=== PATIENT | male | born 1945 | race Caucasian/White ===

== ENCOUNTER → 2018-04-24 11:31 | Outpatient (REF) | payer MEDICARE, SELFPAY ==
[2018-04-24 21:51] LABS: Anion Gap 12.1 mmol/L (3-11); BUN 28 mg/dL (7-18); CO2 26.9 mmol/L (21.0-32.0); CREATININE 1.18 mg/dL (0.70-1.30); Calcium 8.9 mg/dL (8.5-10.1); Chloride 104 mmol/L (98-107); Glucose 143 mg/dL (70-100); Potassium 3.6 mmol/L (3.5-5.1); Sodium 143 mmol/L (136-145)
== END ==
LOC: NCHCN 11:31
PROVIDERS: PCP Nurse Practitioner Adult Health; Visit Provider Registered Nurse
DX: I10 Essential (primary) hypertension (principal)
CPT/HCPCS: 80048

== ENCOUNTER → 2018-06-13 09:16 | Outpatient (BNVA) | payer MEDICARE, SELFPAY | PROVIDERS: Visit Provider Surgery | DX: K92.1 Melena (principal) | CPT/HCPCS: 99203 ==

== ENCOUNTER 2018-06-29 08:03 | Day surgery (SDC) | payer MEDICARE, SELFPAY ==
[2018-06-29 08:41] VITALS: BP 155/102; PULSE 67; RESP 16; TEMP 36.6; O2SAT 96
[2018-06-29] MEDS: Lactated Ringers 1,000 ML 30 ML IV (08:41)
--- NOTE | 2018-06-29 09:11 | W.COLOREPORT ---
Date of service: 06/29/18 Time of Service: 10:55 Colonoscopy Report Date of procedure: 06/29/18 Pre-op diagnosis general: Heme positive stools Post-op diagnosis procedure note: other (Rectal polyp) Procedure: Colonoscopy to the cecum with biopsy by cold snare Surgeon: Oc Mitchell Anesthesia proc note operative: MAC (Monroe Burnham CRNA; ASA 3, Mallampati class II) Estimated blood loss (mL): 1 Pathology: other (Rectal polyp) Complications: None Disposition: same day Indications: This is a 72-year-old gentleman referred for heme positive stools. He had a colonoscopy over 20 years ago which was unremarkable. He denies seeing any blood in his stools, and has been asymptomatic otherwise in regard to his bowels. It was recommended he have a colonoscopy. The procedure was reviewed with him, and the risks discussed. All his questions were answered to his satisfaction. Consent was obtained to proceed with colonoscopy. Prep: Miralax/Dulcolax (Colon prep adequate) Findings: In examining the colon from cecum to anus, a rectal polyp approximately 1 cm in greatest diameter was identified in the rectum, and removed by cold biopsy forceps no other abnormalities are noted of the colon or rectum. Procedure Description: The patient was seen in the day surgery waiting area. His identification was confirmed, and procedure check. He was then brought to the procedure room. Monitoring for telemetry, blood pressure, oxygen saturation, and end tidal CO2 monitoring were applied. An appropriate time out was performed to confirm, identification, allergies, medication, procedure, was performed. Sedation was titrated for affect by the ROBOTIC MAINTENANCE TECHNICIAN; Once adequate sedation was achieved, I performed a inspection of the external perineum, and a digitial rectal examination. No significant external abnormalities were noted. On digital rectal examination, there was no blood, no masses, good rectal tone, and a normal prostate. I advanced the colonoscope from the anus to the cecum under direct visualization. The cecum was identified by the ileal-cecal valve, and the appendiceal orifice. The scope was then withdrawn in circumferential manner from the cecum to the rectum. No abnormalites were noted in the colon. The scope was then withdrawn into the rectum, and retroflexed. A single polyp was identified in the rectum which is approximately 1 cm in greatest diameter. This was subsequently removed by cold snare biopsy, and no other abnormalities were noted of the rectum or anorectal junction. The scope was then withdrawn, terminating the procedure. There were no complications during the procedure, and the patient tolerated the procedure well. He was returned to the day surgery recovery area in good condition. Plan: We will await pathology before making further recommended.
--- NOTE | 2018-06-29 10:45 | BOWEL_PTH ---
PATIENT: Tae Carrizales LOC: [facility] U#:[id number] AGE/SX: 72/M ROOM: RE06/29/[address]: Oc Mitchell DO : 1945 BED: DIS: 06/29/2018 SPEC #: [id number] RECD: 06/29/18 12:49 STATUS: BOUBACAR REQ #: [id number] MEL: 06/29/18 10:[address]: Oc Mitchell DEPT: Surgical Specimen RECD BY: Maisha Brown ENTERED: 06/29/18 12:50 SP TYPE: Bowel OTHR DR: Reyna Kruger Tissues: 1 - BIOPSY BOWEL Procedures: GROSS AND MICRO LEVEL 4 Comments: [id number]
--- NOTE | 2018-06-29 11:03 | W.PM.DSUDISC ---
Discharge Plan Disposition Patient Disposition: HOME Condition: Good Discharge Details Reason For Visit: Heme positive stools Attending Provider: Oc Mitchell Primary Care Provider: DAVE DE LA ROSA Home Meds and New Rx's Prescriptions: Continue bisacodyl [Dulcolax (bisacodyl)] 5 mg tablet,delayed release (DR/EC) 10 mg PO BID Qty: 4 RF: 0 polyethylene glycol 3350 [Miralax] 17 gram/dose powder 255 gm PO ONCE Qty: 255 RF: 0 aspirin [Aspir-81] 81 MG tablet,delayed release (DR/EC) 81 mg PO DAILY RF: 0 lisinopril 40 MG tablet 40 mg PO DAILY RF: 0 chlorthalidone 25 mg Tablet 25 mg PO DAILY RF: 0 labetalol 100 mg Tablet 100 mg PO DAILY RF: 0 omega-3 fatty acids 1,000 mg Capsule 1,000 mg PO DAILY RF: 0 nitroglycerin [Nitrostat] 0.4 mg Tablet, Sublingual 0.4 mg SUBLINGUAL DIRECTED RF: 0 rosuvastatin [Crestor] 40 mg Tablet 40 mg PO DAILY RF: 0 Discharge Instructions Instructions: Colonoscopy (DC) Activity:: Activity as Tolerated Diet:: As Tolerated Discharge Orders Discharge Orders: Discharge Order (Routine); Ordered 06/29/18 Ordered By: Oc Mitchell DS: Diagnosis Discharge Diagnosis (1) Heme positive stool: Status: Acute Asessment and Plan: Colonoscopy planned: Colonoscopy Report Date of procedure: 06/29/18 Pre-op diagnosis general: Heme positive stools Post-op diagnosis procedure note: other (Rectal polyp) Procedure: Colonoscopy to the cecum with biopsy by cold snare Surgeon: Oc Mitchell Anesthesia proc note operative: MAC (Monroe Burnham, LIS[place]TE; ASA 3, Mallampati class II) Estimated blood loss (mL): 1 Pathology: other (Rectal polyp) Complications: None Disposition: same day Indications: This is a 72-year-old gentleman referred for heme positive stools. He had a colonoscopy over 20 years ago which was unremarkable. He denies seeing any blood in his stools, and has been asymptomatic otherwise in regard to his bowels. It was recommended he have a colonoscopy. The procedure was reviewed with him, and the risks discussed. All his questions were answered to his satisfaction. Consent was obtained to proceed with colonoscopy. Prep: Miralax/Dulcolax (Colon prep adequate) Findings: In examining the colon from cecum to anus, a rectal polyp approximately 1 cm in greatest diameter was identified in the rectum, and removed by cold biopsy forceps no other abnormalities are noted of the colon or rectum. Procedure Description: The patient was seen in the day surgery waiting area. His identification was confirmed, and procedure check. He was then brought to the procedure room. Monitoring for telemetry, blood pressure, oxygen saturation, and end tidal CO2 monitoring were applied. An appropriate time out was performed to confirm, identification, allergies, medication, procedure, was performed. Sedation was titrated for affect by the CUTTER BRAKE LINING; Once adequate sedation was achieved, I performed a inspection of the external perineum, and a digitial rectal examination. No significant external abnormalities were noted. On digital rectal examination, there was no blood, no masses, good rectal tone, and a normal prostate. I advanced the colonoscope from the anus to the cecum under direct visualization. The cecum was identified by the ileal-cecal valve, and the appendiceal orifice. The scope was then withdrawn in circumferential manner from the cecum to the rectum. No abnormalites were noted in the colon. The scope was then withdrawn into the rectum, and retroflexed. A single polyp was identified in the rectum which is approximately 1 cm in greatest diameter. This was subsequently removed by cold snare biopsy, and no other abnormalities were noted of the rectum or anorectal junction. The scope was then withdrawn, terminating the procedure. There were no complications during the procedure, and the patient tolerated the procedure well. He was returned to the day surgery recovery area in good condition. Plan: We will await pathology before making further recommended.
[2018-06-29 11:40] VITALS: BP 145/84; PULSE 57; RESP 16; TEMP 35.8; O2SAT 98
== END 2018-06-29 12:10 | disposition home or self-care (01) ==
PROVIDERS: PCP Registered Nurse; Visit Provider Surgery
PROC: 0DJD8ZZ Inspection of Lower Intestinal Tract, Via Natural or Artificial Opening Endoscopic (ICD-10-PCS; CPT 45378; principal; 2018-06-29 10:15)
DX: R19.5 Other fecal abnormalities (principal); D12.8 Benign neoplasm of rectum; I10 Essential (primary) hypertension
CPT/HCPCS: 45385; 88305; J2250; J3010

== ENCOUNTER 2018-09-06 00:57 | Outpatient (CLI) | payer MEDICARE, SELFPAY ==
[2018-09-06 13:37] LABS: BUN 33 mg/dL (7-18); CREATININE 1.07 mg/dL (0.70-1.30)
[2018-09-06] MEDS: Gadoterate meglumine 20 ML VIAL IVP (14:14)
--- NOTE | 2018-09-06 14:33 | DI.MRI_ITS ---
SYMPTOM/DIAGNOSIS: IMPAIRMENT OF AUDIO LEFT H93.292, I 91.93, HI.18X2 BRAIN MRI/IAC MRI: The study was carried out without and subsequently with contrast enhancement. There are mild involutional changes involving the brain of small scattered areas of increased signal in the frontoparietal white matter are demonstrated and would be consistent with small vessel disease. There is no evidence of a hemorrhage or mass. There is nothing to suggest regions of restricted diffusion. Note is made of a small region of T-2 hyperintensity in the left timi. This region is seen to measure up to 6 mm in diameter and appears to exhibit enhancement on the contrast run. The ventricles are normal. There is no skull pathology. The soft tissues are unremarkable. Note is made of lobulated mucosal thickening in the paranasal sinuses particularly the ethmoid and frontal sinuses with enhancement. No air fluid levels are demonstrated to suggest acute disease. The mastoid is intact with no evidence of a mastoid effusion. The internal and external auditory canals are of normal configuration. There is no evidence of a mass or abnormal enhancement. Also the middle ear structures appear intact. The orbits are normal. SUMMARY: A small abnormality in the left timi with enhancement, nonspecific, with a broad differential to include infection, inflammatory disease or vascular abnormality and malignancy. Short interval follow up by MRI is recommended regarding this finding. Inflammatory disease is noted involving the ethmoid and frontal sinuses where there may also be small polyps. There is no evidence of acute sinus disease.
--- NOTE | 2018-09-06 16:00 | DI.VRAD_ITS ---
EXAM: MR Head Without and With Contrast EXAM DATE/TIME: 09/06/2018 2:31 PM CLINICAL HISTORY: 72 years old, male; Pain; Other: Iac's; Patient HX: Im pairment of audio left. TECHNIQUE: MR of the head without and with intravenous contrast. CONTRAST: 20 ml of DOTAREM administered intravenously. COMPARISON: No relevant prior studies available. FINDINGS: Brain: Age-related involutional changes of the brain. Scattered T2/flair white matter hyperintensities are present and show no significant enhancement. These are most compatible with chronic microangiopathy. No hemorrhage or mass. No restricted diffusion. Brainstem: There is a small focus of T2 hyperintensity in the left timi. This is seen to measure up to 6 mm. This displays enhancement postcontrast. Ventricles: Normal. No ventriculomegaly. Bones/joints: Unremarkable. Soft tissues: Normal. Sinuses: There is lobulated mucosal thickening in the paranasal sinuses, particularly the ethmoid and frontal sinuses with enhancement. No air-fluid levels. Mastoid air cells: Normal as visualized. No mastoid effusion. Auditory system: Internal and external auditory canals display normal configuration with no evidence of masses or abnormal enhancement. Normal MRI appearance of middle ear structures. Orbits: Unremarkable. IMPRESSION: 1. Small abnormality of the left timi with enhancement. Findings are nonspecific with a broad differential to include infection, inflammation, or vascular abnormality and malignancy. Short interval followup MRI is recommended. 2. Sinus inflammatory disease particularly involving the ethmoid and frontal sinuses with a lobulated appearance which may be from polyposis. Dictated and Authenticated by: Luis A Castro MD. Ordering:ARIANA Dwyer MD
== END 2018-09-06 01:17 ==
PROVIDERS: PCP Registered Nurse; Visit Provider Otolaryngology Otolaryngology/Facial Plastic Surgery
DX: H93.292 Other abnormal auditory perceptions, left ear (principal); H91.93 Unspecified hearing loss, bilateral; R94.02 Abnormal brain scan; Z13.89 Encounter for screening for other disorder; Z01.818 Encounter for other preprocedural examination
CPT/HCPCS: 36415; 70553; 84520; 82565

== ENCOUNTER 2018-10-05 00:28 | Outpatient (CLI) | payer OTHER, SELFPAY ==
[2018-10-05] MEDS: Gadoterate meglumine 20 ML VIAL IVP (08:40)
--- NOTE | 2018-10-05 08:58 | DI.MRI_ITS ---
SYMPTOMS/DIAGNOSIS: ASYMMETRICAL HEARING LOSS OF LEFT EAR, ABNORMAL FINDING ON MRI OF THE BRAIN, H91.8X2, R90.89 MRI OF THE BRAIN AND IACS: Pre and post contrast examination was performed. Comparison is 09/06/18. There is again seen a focus in the left timi, which follows CSF on all sequences. It does not enhance following contrast administration. There is cerebral atrophy consistent with the patient's age. There are areas of T2 hyperintensity in the white matter on the T2 and FLAIR images most consistent with small vessel ischemic disease. There is no acute midline shift or mass effect. The diffusion weighted images show no evidence of an acute infarct. No intracranial hemorrhage is present. Following contrast administration, no enhancing masses are appreciated. The internal auditory canals and cerebellopontine angles are unremarkable. No mass or abnormal enhancement is seen. There is a normal flow void present in the [place]. There is mucosal thickening in the maxillary sinuses and ethmoid air cells bilaterally. There is soft tissue seen in the nasal passageways bilaterally. These may represent nasal polyps. IMPRESSION: 1. Stable abnormality in the left timi as described above. The finding is nonspecific, but this may represent an old lacune. It follows CSF on all pulse sequences and shows no enhancement. Neoplasm is considered less likely. 2. Findings of chronic sinusitis. Soft tissue in the nasal passageway, which may represent nasal polyps. 3. Age-related cerebral atrophy and small vessel ischemic disease. 4. No evidence of an acute infarct or intracranial hemorrhage.
== END 2018-10-05 00:48 ==
PROVIDERS: PCP Registered Nurse; Visit Provider Physician Assistant
DX: H91.8X2 Other specified hearing loss, left ear (principal); R90.89 Other abnormal findings on diagnostic imaging of central nervous system; G31.1 Senile degeneration of brain, not elsewhere classified; J32.9 Chronic sinusitis, unspecified; J33.9 Nasal polyp, unspecified
CPT/HCPCS: 70553

== ENCOUNTER → 2019-01-10 09:40 | Outpatient (BNVA) | payer OTHER, SELFPAY | PROVIDERS: PCP Registered Nurse; Referring Provider Physician Assistant; Visit Provider Psychiatry & Neurology Neurology | DX: I63.89 Other cerebral infarction (principal); Z79.82 Long term (current) use of aspirin; I10 Essential (primary) hypertension; E78.5 Hyperlipidemia, unspecified | CPT/HCPCS: 99205; 99215 ==

== ENCOUNTER 2019-01-23 08:58 | Outpatient (REF) | payer OTHER, SELFPAY ==
[2019-01-23 22:36] LABS: Anion Gap 10.7 mmol/L (3-11); BUN 43 mg/dL (7-18); CO2 25.3 mmol/L (21.0-32.0); CREATININE 1.23 mg/dL (0.70-1.30); Calcium 9.4 mg/dL (8.5-10.1); Chloride 103 mmol/L (98-107); Estimated GFR 57.68 (mL/min/1.73m2); Glucose 125 mg/dL (70-100); Sodium 139 mmol/L (136-145)
== END 2019-01-23 09:18 ==
LOC: NCHCN 08:58
PROVIDERS: PCP Registered Nurse; Visit Provider Registered Nurse
DX: I10 Essential (primary) hypertension (principal)
CPT/HCPCS: 80048

== ENCOUNTER 2019-01-25 01:16 | Outpatient (CLI) | payer OTHER, SELFPAY ==
--- NOTE | 2019-01-25 08:18 | DI.MRI_ITS ---
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 There are areas of flow artifact. There is no evidence of significant stenosis or vascular occlusion. MRA OF [place]: A 3 D time of flight study was performed. The left vertebral artery is dominant. The vessel diameters appear normal throughout. There is no significant stenosis or evidence of occlusion. IMPRESSION: MRA of the [place] is within normal limits.
== END 2019-01-25 01:36 ==
PROVIDERS: PCP Registered Nurse; Visit Provider Psychiatry & Neurology Neurology
DX: I63.39 Cerebral infarction due to thrombosis of other cerebral artery (principal)
CPT/HCPCS: 70544; 70547

== ENCOUNTER 2019-01-29 00:14 | Outpatient (CLI) | payer OTHER, SELFPAY ==
--- NOTE | 2019-01-29 07:10 | MERGE_ITS ---
*[facility]* *[facility]* [address] [place] [address] Date of study: 01/29/2019 Transthoracic Echocardiography M-mode, complete 2D, complete spectral Doppler, and color Doppler *STUDY CONCLUSIONS* Summary: 1. Left ventricle: The cavity size was normal. The estimated ejection fraction was 55%. Diastolic parameters were normal for age. There was no evidence of elevated ventricular filling pressure by Doppler parameters. 2. Mitral valve: There was mild regurgitation. Valve area by pressure half-time: 2.5cm^2. 3. Right ventricle: The cavity size was normal. Wall thickness was normal. Systolic function was normal. 4. Atrial septum: No defect or patent foramen ovale was identified. 5. Pulmonary arteries: Pulmonary systolic pressure was in the range of 25mm Hg to 35mm Hg. 6. Inferior vena cava: The vessel was patent and normal in size. The respirophasic diameter changes were in the normal range (greater than or equal to 50%), consistent with normal central venous pressure. *PATIENT PRESENTATION* Height: 180.3cm ((71in) ) S/D Pressure: 126 / 67 Weight: 102.5kg ((225.5lb) ) BSA: 2.29m^2 Test start time: 07:40 AM. Test stop time: 08:40 AM. PERFORMING Unknown PERFORMING [facility] ORDERING Noris Leal REFERRING Noris Leal NEURODIAGNOSTIC TECHNOLOGIST Shawnee Wallace RT (R)(CT), RDCS CONSULTING Reyna Kruger *PROCEDURE DATA* Procedure information: This study was interpreted by [facility]. Pertinent images and digital data are archived for permanent storage and are available for subsequent review. Comparison was made to the study of 12/01/2014. Study status: Routine. Transthoracic echocardiography. M-mode, complete 2D, complete spectral Doppler, and color Doppler. A Transthoracic Echocardiogram was performed. Scanning was performed from the parasternal, apical, subcostal, and suprasternal notch acoustic windows. Images were obtained using an [id number] cardiac ultrasound machine. Image quality was adequate. Study completion: The patient tolerated the procedure well. History: PMH: Left pontine stroke. 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 Cerebral infarction i63.9, i63.39. *CARDIAC ANATOMY* Left ventricle: The cavity size was normal. The estimated ejection fraction was 55%. The tissue Doppler parameters were abnormal. Diastolic parameters were normal for age. There was no evidence of elevated ventricular filling pressure by Doppler parameters. Aortic valve: [place]. Doppler: There was no stenosis. There was no regurgitation. VTI ratio of LVOT to aortic valve: 0.43. Valve area (VTI): 1.8cm^2. Indexed valve area (VTI): 0.8cm^2/m^2. Peak velocity ratio of LVOT to aortic valve: 0.4. Valve area (Vmax): 1.6cm^2. Indexed valve area (Vmax): 0.7cm^2/m^2. Mean velocity ratio of LVOT to aortic valve: 0.42. Valve area (Vmean): 1.7cm^2. Indexed valve area (Vmean): 0.7cm^2/m^2. Mean gradient (S): 9.5mm Hg. Peak gradient (S): 17.1mm Hg. Aorta: Aortic root: The aortic root was normal in size. Ascending aorta: The ascending aorta was moderately dilated. Mitral valve: Doppler: There was no evidence for stenosis. There was mild regurgitation. Valve area by pressure half-time: 2.5cm^2. Indexed valve area by pressure half-time: 1.1cm^2/m^2. Left atrium: The atrium was normal in size. Atrial septum: No defect or patent foramen ovale was identified. Right ventricle: The cavity size was normal. Wall thickness was normal. Systolic function was normal. Pulmonic valve: Doppler: There was no evidence for stenosis. There was mild regurgitation. Peak gradient (S): 4.6mm Hg. Tricuspid valve: Doppler: There was mild regurgitation. Pulmonary artery: Poorly visualized. Pulmonary systolic pressure was in the range of 25mm Hg to 35mm Hg. Right atrium: The atrium was normal in size. Pericardium: There was no pericardial effusion. Systemic veins: Inferior vena cava: Well visualized. The vessel was patent and normal in size. The respirophasic diameter changes were in the normal range (greater than or equal to 50%), consistent with normal central venous pressure. Baseline ECG: Bradycardia. Measurements Left ventricle Value Reference LV ID, ED, PLAX 5.8 cm 3.5 - 6.0 LV ID, ES, PLAX (H) 4.1 cm 2.1 - 4.0 LV PW thickness, ED, PLAX 1.0 cm LV end-diastolic volume, 1-p A2C 100 ml LV ejection fraction, 1-p A2C 53 % LV end-diastolic volume, 1-p A4C 115 ml LV ejection fraction, 1-p A4C 53 % LV e', lateral 0.073 m/sec LV E/e', lateral 8 LV e', medial 0.052 m/sec LV E/e', medial 12 LV e', average 0.063 m/sec LV E/e', average 10 Ventricular septum Value Reference IVS thickness, ED, PLAX 1.0 cm LVOT Value Reference LVOT ID, A-P 2.3 cm LVOT area 4.1 cm^2 LVOT peak velocity, S 0.82 m/sec LVOT mean velocity, S 0.61 m/sec LVOT VTI, S 20.9 cm LVOT peak gradient, S 2.7 mm Hg LVOT mean gradient, S 1.7 mm Hg Stroke volume (SV), LVOT DP 85 ml Stroke index (SV/bsa), LVOT DP 37 ml/m^2 Aortic valve Value Reference Aortic valve peak velocity, S 2.1 m/sec Aortic valve mean velocity, S 1.47 m/sec Aortic valve VTI, S 48.0 cm Aortic mean gradient, S 9.5 mm Hg Aortic peak gradient, S 17.1 mm Hg VTI ratio, LVOT/AV 0.43 Aortic valve area, VTI 1.8 cm^2 Velocity ratio, peak, LVOT/AV 0.4 Aortic valve area, peak velocity 1.6 cm^2 Velocity ratio, mean, LVOT/AV 0.42 Aortic valve area, mean velocity 1.7 cm^2 Aortic valve area/bsa, mean velocity 0.7 cm^2/m^2 Aorta Value Reference Aortic root ID, ED 3.6 cm Ascending aorta ID, A-P, S 3.9 cm Left atrium Value Reference LA ID, A-P, ES 4.3 cm LA ID/bsa, A-P 1.9 cm/m^2 <=2.2 LA area, ES, A4C 21.5 cm^2 8.8 - 23.4 LA area, ES, A2C 27 cm^2 LA volume/bsa, ES, 1-p A4C 28 ml/m^2 LA volume, ES, 2-p 71 ml LA volume/bsa, ES, 2-p 31 ml/m^2 LA/aortic root ratio 1.19 Mitral valve Value Reference Mitral E-wave peak velocity 0.62 m/sec Mitral A-wave peak velocity 0.84 m/sec Mitral deceleration time (H) 304 ms 150 - 230 Mitral pressure half-time 88 ms Mitral E/A ratio, peak 0.74 Mitral valve area, PHT, DP 2.5 cm^2 Pulmonary veins Value Reference Pulmonary vein peak velocity, S 0.55 m/sec Pulmonary vein peak velocity, D 0.52 m/sec Pulmonary vein velocity ratio, peak, 1.06 S/D Pulmonary vein A-wave reversal peak 0.28 m/sec velocity Tricuspid valve Value Reference Tricuspid regurg peak velocity 2.6 m/sec Tricuspid peak RV-RA gradient 26.5 mm Hg Right atrium Value Reference RA area, ES, A4C 18.2 cm^2 8.3 - 19.5 Pulmonic valve Value Reference Pulmonic peak gradient, S 4.6 mm Hg Legend: (L) and (H) duane values outside specified reference range. I have personally reviewed the images and have reviewed and edited the reported findings. Electronically signed by Martinez Hamilton MD 01/29/2019 13:52
== END 2019-01-29 00:34 ==
PROVIDERS: PCP Registered Nurse; Visit Provider Psychiatry & Neurology Neurology
DX: I63.39 Cerebral infarction due to thrombosis of other cerebral artery (principal); I10 Essential (primary) hypertension; I25.10 Atherosclerotic heart disease of native coronary artery without angina pectoris; I34.0 Nonrheumatic mitral (valve) insufficiency
CPT/HCPCS: 93306

== ENCOUNTER 2019-01-29 01:31 | Outpatient (CLI) | payer OTHER, SELFPAY ==
--- NOTE | 2019-02-18 09:15 | ZIOP_ITS ---
DATE OF DICTATION: February 15, 2019 INDICATION: Cerebral infarction. ANALYSIS TIME: 13 days and 10 hours. Predominant underlying rhythm is sinus rhythm. Average heart rate 68 bpm, minimum heart rate 47 bpm, and maximum heart rate 139 bpm. Six short bursts of SVT. Longest lasting 5 beats. Rare isolated atrial ectopy. No atrial fibrillation detected. No significant bradyarrhythmias or pauses. No non-sustained VT. Rare isolated ventricular ectopy. Six patient-triggered events correspond to sinus rhythm with one corresponding to sinus rhythm with isolated atrial ectopy.
== END 2019-01-29 01:51 ==
PROVIDERS: PCP Registered Nurse; Visit Provider Psychiatry & Neurology Neurology
DX: I69.30 Unspecified sequelae of cerebral infarction (principal); I47.1 Supraventricular tachycardia
CPT/HCPCS: 0296T

== ENCOUNTER 2019-01-29 07:12 | Outpatient (CLI) | payer OTHER, SELFPAY ==
[2019-01-29 08:47] LABS: Cholesterol 166 mg/dL (50-200); HDL Cholesterol 41 mg/dL (40-60); Hemoglobin A1C 6.3 % (4.5-6.2); LDL CHOLESTEROL 92 mg/dL (<100); Triglyceride 158 mg/dL (30-150)
== END 2019-01-29 07:32 ==
PROVIDERS: PCP Registered Nurse; Visit Provider Psychiatry & Neurology Neurology
DX: G62.9 Polyneuropathy, unspecified (principal); I63.39 Cerebral infarction due to thrombosis of other cerebral artery; R73.09 Other abnormal glucose; I10 Essential (primary) hypertension
CPT/HCPCS: 36415; 80061; 83721; 83036

== ENCOUNTER 2019-02-15 15:50 | Outpatient (CLI) | payer OTHER, SELFPAY | END 2019-02-15 16:10 | PROVIDERS: PCP Registered Nurse; Referring Provider Registered Nurse; Visit Provider Internal Medicine Cardiovascular Disease | DX: I69.30 Unspecified sequelae of cerebral infarction (principal); I47.1 Supraventricular tachycardia | CPT/HCPCS: 0298T ==

== ENCOUNTER → 2019-03-20 09:50 | Outpatient (BNVA) | payer OTHER, SELFPAY | PROVIDERS: PCP Registered Nurse; Visit Provider Psychiatry & Neurology Neurology | DX: I63.39 Cerebral infarction due to thrombosis of other cerebral artery (principal); R73.03 Prediabetes; I10 Essential (primary) hypertension | CPT/HCPCS: 99214 ==

== ENCOUNTER 2019-07-31 10:46 | Outpatient (REF) | payer OTHER, SELFPAY ==
[2019-07-31 22:54] LABS: COMMENT (LAB VIEW ONLY) 139.17 mg/dL; Microalb ug/mg Crea 14.1 ug/mg Cr
== END 2019-07-31 11:06 ==
LOC: NCHCN 10:46
PROVIDERS: PCP Registered Nurse; Visit Provider Registered Nurse
DX: R80.9 Proteinuria, unspecified (principal)
CPT/HCPCS: 82043; 82570

== ENCOUNTER 2020-02-05 09:17 | Outpatient (REF) | payer OTHER, SELFPAY ==
[2020-02-05 22:14] LABS: Anion Gap 7.6 mmol/L (3-11); BUN 30 mg/dL (7-18); CO2 28.4 mmol/L (21.0-32.0); Calcium 9.2 mg/dL (8.5-10.1); Chloride 103 mmol/L (98-107); Estimated GFR 59.18 (mL/min/1.73m2); Glucose 134 mg/dL (74-106); Potassium 3.8 mmol/L (3.5-5.1); Sodium 139 mmol/L (136-145)
== END 2020-02-05 09:37 ==
LOC: NCHCN 09:17
PROVIDERS: PCP Registered Nurse; Visit Provider Registered Nurse
DX: R73.03 Prediabetes (principal); I10 Essential (primary) hypertension
CPT/HCPCS: 80048; 83036

== ENCOUNTER 2020-12-16 11:39 | Outpatient (REF) | payer OTHER, SELFPAY ==
[2020-12-16 22:11] LABS: HCT 38.5 % (40.0-50.0); HGB 12.7 g/dL (13.5-17.5); MCH 30.8 pg (27.0-33.0); MCV 93.2 fL (80-95); MPV 9.3 fL (8.0-11.0); Platelet Count 277 10^3/uL (130-400); RBC 4.13 10^6/uL (4.36-5.78); RDW 14.6 % (11.8-14.1); RDW-SD 49.4 fL; WBC 7.76 10^3/uL (4.4-10.8)
[2020-12-16 22:52] LABS: Vitamin B12 217 pg/mL (193-986)
[2020-12-16 22:53] LABS: Folate > 20.0 ng/mL (8.6-20.0)
== END 2020-12-16 11:40 | disposition home or self-care (01) ==
LOC: NCHCN 11:39
PROVIDERS: PCP Registered Nurse; Visit Provider Registered Nurse
DX: D64.9 Anemia, unspecified (principal); I10 Essential (primary) hypertension; I25.10 Atherosclerotic heart disease of native coronary artery without angina pectoris; D53.9 Nutritional anemia, unspecified; E53.8 Deficiency of other specified B group vitamins
CPT/HCPCS: 85027; 82607; 82746

== ENCOUNTER 2021-10-01 14:50 | Outpatient (REF) | payer OTHER, SELFPAY ==
[2021-10-01 15:52] LABS: HCT 40.6 % (40.0-50.0); HGB 13.8 g/dL (13.5-17.5); MCH 32.1 pg (27.0-33.0); MCV 94.4 fL (80-95); MPV 9.5 fL (8.0-11.0); Platelet Count 259 10^3/uL (130-400); RDW 13.4 % (11.8-14.1); RDW-SD 46.5 fL; WBC 7.32 10^3/uL (4.4-10.8)
[2021-10-01 16:07] LABS: Hemoglobin A1C 5.9 % (<5.7)
[2021-10-01 16:16] LABS: Anion Gap 10.4 mmol/L (3-11); BUN 34 mg/dL (7-18); CO2 25.6 mmol/L (21.0-32.0); CREATININE 1.1 mg/dL (0.70-1.30); Calcium 9.1 mg/dL (8.5-10.1); Chloride 103 mmol/L (98-107); Glucose 93 mg/dL (74-106); Sodium 139 mmol/L (136-145)
== END 2021-10-01 14:51 | disposition home or self-care (01) ==
LOC: NCHCN 14:50
PROVIDERS: PCP Registered Nurse; Visit Provider Registered Nurse
DX: R73.03 Prediabetes (principal); I10 Essential (primary) hypertension; D64.9 Anemia, unspecified
CPT/HCPCS: 80048; 85027; 83036

== ENCOUNTER 2022-03-31 18:10 | Outpatient (REF) | payer OTHER, SELFPAY ==
[2022-03-31 15:05] LABS: Calculated LDL 48 mg/dL (<100); Cholesterol 126 mg/dL (<200); HDL Cholesterol 48 mg/dL (40-60); Triglyceride 151 mg/dL (<150)
== END 2022-03-31 18:11 | disposition home or self-care (01) ==
LOC: NCHCN 18:10
PROVIDERS: PCP Registered Nurse; Visit Provider Registered Nurse
DX: R73.03 Prediabetes (principal); E78.5 Hyperlipidemia, unspecified
CPT/HCPCS: 80061; 83036

== ENCOUNTER 2022-08-22 12:40 | Outpatient (REF) | payer OTHER, SELFPAY | END 2022-08-22 12:41 | disposition home or self-care (01) | LOC: LBN 12:40 | PROVIDERS: PCP Registered Nurse; Visit Provider Surgery | DX: I71.40 Abdominal aortic aneurysm, without rupture, unspecified (principal) | CPT/HCPCS: 82565 ==

== ENCOUNTER 2022-09-28 08:25 | Outpatient (REF) | payer MEDICARE, SELFPAY ==
[2022-09-28 16:32] LABS: COMMENT (LAB VIEW ONLY) 108.29 mg/dL; Microalb ug/mg Crea 32.1 ug/mg Cr
== END 2022-09-28 08:26 | disposition home or self-care (01) ==
LOC: NCHCN 08:25
PROVIDERS: PCP Registered Nurse; Visit Provider Registered Nurse
DX: R73.03 Prediabetes (principal)
CPT/HCPCS: 82043; 82570

== ENCOUNTER → 2023-10-30 12:29 | Outpatient (BNVA) | payer MEDICARE, SELFPAY | PROVIDERS: PCP Registered Nurse; Referring Provider Registered Nurse; Visit Provider Surgery | DX: Z12.11 Encounter for screening for malignant neoplasm of colon (principal); Z86.010 Personal history of colon polyps ==

== ENCOUNTER 2023-11-14 06:00 | Day surgery (SDC) | payer MEDICARE, SELFPAY ==
[2023-11-14 06:23] VITALS: BP 128/84; PULSE 77; RESP 18; TEMP 37.1; O2SAT 98
[2023-11-14] MEDS: Lactated Ringers 1,000 ML 80 ML IV (06:43)
--- NOTE | 2023-11-14 07:05 | ANES.PREOP_ITS ---
General Info Date of Service Date Performed: 11/14/23 Height: 5 ft 11 in Weight: 97.5 kg Body Mass Index (BMI): 29.9 Surgical Procedure: Operation Date: 11/14/23 07:35 Proposed Procedure Side Surgeon p Colonoscopy Amanuel Campbell MD Meds Allergies and Home Medications Allergies Allergy/AdvReac Type Severity Reaction Status Date / Time No Known Allergies Allergy Verified 11/14/23 06:40 Home Medication Medication Instructions Recorded labetalol 100 mg tablet 100 mg PO DAILY 06/26/18 nitroglycerin 0.4 mg sublingual 0.4 mg sublingual DIRECTED 06/26/18 tablet (Nitrostat) omega-3 fatty acids 1,000 mg 1,000 mg PO DAILY 06/26/18 capsule rosuvastatin 40 mg tablet (Crestor) 40 mg PO DAILY 06/26/18 ibuprofen 200 mg tablet 200 mg PO TID PRN 10/01/18 chlorthalidone 25 mg tablet 25 mg PO BID 03/20/19 clopidogrel 75 mg tablet 75 mg PO DAILY #90 tabs 02/13/20 Bacillus coagulans 10 billion cell 10 cell PO DAILY 10/05/23 capsule,delayed release (Probiotic (B. coagulans)) ascorbic acid (vitamin C) 1,000 mg 1 g PO Q6H 10/05/23 capsule aspirin 81 mg tablet,delayed 81 mg PO DAILY 10/05/23 release docusate sodium 100 mg capsule 100 mg PO DAILY 10/05/23 ezetimibe 10 mg tablet (Zetia) 10 mg PO DAILY 10/05/23 lisinopril 20 mg tablet 20 mg PO DAILY 10/05/23 zinc gluconate 50 mg tablet 50 mg PO DAILY 10/05/23 bisacodyl 5 mg tablet,delayed 5 mg PO ONCE colonscopy bowel prep 10/30/23 release (Dulcolax (bisacodyl)) #4 tabs polyethylene glycol 3350 17 238 g PO ONCE colonoscopy prep 10/30/23 gram/dose oral powder #238 grams Current Visit Medications: Current Medications Generic Name Dose Route Start Last Admin Trade Name Freq PRN Reason Stop Dose Admin Ringer's Solution 1,000 mls @ 80 mls/hr 11/14/23 06:00 11/14/23 06:43 IV 12/13/23 23:59 80 mls/hr INFUSION UMER Administration IV Miscellaneous Supplies 1 each 11/14/23 06:00 Iv Access IV 12/13/23 23:59 DIRECTED UMER Sodium Chloride 0 ml 11/14/23 06:00 Normal Saline Flush 10 Ml Syr IV 12/13/23 23:59 PRN PRN Sodium Chloride 0 ml 11/14/23 06:00 Normal Saline 10 Ml Vial IJ 12/13/23 23:59 DIRECTED PRN Sterile Water 0 ml 11/14/23 06:00 Water,Injection,Sterile 10 Ml Vial IJ 12/13/23 23:59 DIRECTED PRN PFSH Active Problems Active Problems: Problem Status Onset Code Mild cognitive impairment G31.84 Abdominal aortic aneurysm I71.40 Diabetic retinopathy E11.319 Left renal artery stenosis I70.1 Actinic keratoses L57.0 Otorrhea, right ear H92.11 Pre-diabetes R73.03 HTN (hypertension) Hyperlipidemia E78.5 CAD (coronary artery disease) I25.10 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 Asymmetrical hearing loss of left ear H91.8X2 High frequency hearing loss of both ears H91.93 Sensory hearing loss, bilateral 06/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 H90.3 Sensorineural hearing loss, asymmetrical 06/16/14 H90.5 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 Nasal polyposis 06/16/14 J33.9 Nasal obstruction 06/16/14 J34.89 Anosmia 06/16/14 R43.0 Abnormal auditory perception 06/16/14 H93.299 Heme positive stool R19.5 Medical History Medical History H/O sustained ventricular fibrillation AMI (acute myocardial infarction) Right foot injury Murmur, cardiac Elevated glucose level Surgical History Surgical History Status post endovascular aneurysm repair (EVAR) H/O colonoscopy (06/29/18) Dr Mitchell, tubular adenoma, repeat 5 years Status post coronary artery stent placement 2004 Tobacco Smoking/Tobacco Use Status: Former Tobacco Use Alcohol Alcohol Intake: current Alcohol intake frequency: holidays/special occasions only Substance Use Substance use: Never Substance use type: does not use Vital Signs and Lab Results Vital Signs Most Recent Vital Signs in EMR: Most Recent Vital Signs Temp Pulse Resp BP Pulse Ox 37.1 C 77 18 128/84 98 11/14/23 06:23 11/14/23 06:23 11/14/23 06:23 11/14/23 06:23 11/14/23 06:23 Lab Results Blood Type / Crossmatch: No Data to Display Complete Blood Count: No Data to Display Complete Metabolic Panel: No Data to Display Liver Function Panel: No Data to Display Coagulation Panel: No Data to Display Cardiac Panel: No Data to Display Arterial Blood Gas: No Data to Display Venous Blood Gas: 2 No Data to Display Pancreas Panel: No Data to Display Thyroid Panel: No Data to Display Infectious Disease: No Data to Display Blood Cultures: No Data to Display Toxicology Panel: No Data to Display Imaging and Studies Imaging and Studies Study information below may be from another EMR and interpreted by another provider. Please see original notes in EMR for more complete details. Echocardiogram Summary: 01/29/2019: Summary: 1. Left ventricle: The cavity size was normal. The estimated ejection fraction was 55%. Diastolic parameters were normal for age. There was no evidence of elevated ventricular filling pressure by Doppler parameters. 2. Mitral valve: There was mild regurgitation. Valve area by pressure half-time: 2.5cm^2. 3. Right ventricle: The cavity size was normal. Wall thickness was normal. Systolic function was normal. 4. Atrial septum: No defect or patent foramen ovale was identified. 5. Pulmonary arteries: Pulmonary systolic pressure was in the range of 25mm Hg to 35mm Hg. 6. Inferior vena cava: The vessel was patent and normal in size. The respirophasic diameter changes were in the normal range (greater than or equal to 50%), consistent with normal central venous pressure. Anesthesia Assessment and Plan Anesthesia History Personal History: No History of Anesthesia Complications Family History: No Family History of Anesthesia Complications Exercise Tolerance Exercise Tolerance: Metabolic Equivalents>4 Pertinent Negatives Pertinent Negatives: No Symptoms of GERD and No Major Pulmonary Symptoms or Complaints Cardiac & Pulmonary Exam Cardiac Exam: Heart Murmur Present Pulmonary Exam: Clear Bilateral Breath Sounds Implantable Cardiac Device Does patient have a Pacemaker or an ICD?: No Airway Exam Known Difficult Airway: No Mallampati Class: 2 Mouth Opening: Normal (> 3cm) Thyromental Distance: Greater than 3 cm Facial Hair: Full Martini Neck Range of Motion: Full ROM Neck Circumference: Normal Teeth Condition: Generalized Poor Dentition ASA Classification ASA Score: ASA 3 Emergency Case?: No NPO Status NPO Status: NPO Clears >2 hours, Solids >8 hours Anesthesia Plan Resuscitation Status: Full Code Anesthesia Technique: General Anesthesia Airway Planned: Natural Airway Monitors Used: Standard Monitors
[2023-11-14 07:08] VITALS: BMI 29.9
--- NOTE | 2023-11-14 07:54 | BOWEL_PTH ---
PATIENT: Tae Carrizales LOC: [facility] U#:[id number] AGE/SX: 78/M ROOM: RE11/14/[address]: Amanuel Campbell : 1945 BED: DIS: 11/14/2023 SPEC #: [id number] RECD: 11/14/23 12:42 STATUS: BOUBACAR REYNA #: [id number] MEL: 11/14/23 07:[address]: Amanuel Campbell DEPT: Surgical Specimen RECD BY: Maisha Brown ENTERED: 11/14/23 12:43 SP TYPE: Bowel OTHR DR: Reyna Kruger Tissues: 1 - BIOPSY BOWEL 2 - BIOPSY BOWEL Procedures: GROSS AND MICRO LEVEL 4 Comments: [id number]
[2023-11-14 08:14] VITALS: BP 122/65; PULSE 70; RESP 16; TEMP 36.3; O2SAT 95
--- NOTE | 2023-11-14 08:15 | W.COLOREPORT ---
Date of service: 11/14/23 Time of Service: 08:16 Colonoscopy Report Procedure Description: PROCEDURES PERFORMED: 1. Colonoscopy with hot snare polypectomy x1 2. Ablation of polyp x1 3. Cold forceps polypectomy x1 PREOPERATIVE DIAGNOSIS: Surveillance colonoscopy, colon polyps POSTOPERATIVE DIAGNOSIS: Colon polyps, pandiverticulosis SURGEON: Freda Campbell MD INDICATION for procedure: The patient is a 78 yo man with a history of colon polyps. Last c-scope 5 years ago. FINDINGS: In the cecum a small 3-5 mm sessile polyp was removed with cold forceps technique and then the bed of it was ablated with the tip of the hot snare. In the descending colon a sessile, very flat, 7-10 mm sessile/serrated?appearing polyp was removed with hot snare technique. There are scattered diverticular changes present throughout the entire colon and actually seem worse on the right side than the left. SURVEILLANCE interval/FOLLOW-UP: As long as the patient stays healthy and has a good life expectancy it is worthwhile to do another colonoscopy in 3-5 years in my opinion. SPECIMENS: Yes EBL: Minimal COMPLICATIONS: None QUALITY of prep: Excellent Procedure in detail: The patient gave written consent and was in agreement with the indications, the potential risks as well as the benefits of the procedure. They were taken to the endoscopy suite and laid in the left lateral decubitus position. A timeout was performed and anesthesia was administered which was tolerated well. I started the procedure. Digital rectal and visual examination was performed and grossly within normal limits. A well-lubricated flexible colonoscope was then introduced and passed without any notable difficulty all the way to the cecum identified by the ileocecal valve and the appendiceal orifice. The terminal ileum was intubated and appeared normal. Patient the scope was then slowly withdrawn with the above-noted findings. The patient tolerated the procedure well and was taken to the PACU in hemodynamically stable condition.
--- NOTE | 2023-11-14 08:28 | W.PM.DSUDISC ---
Date of service: 11/14/23 Time of Service: 08:28 Discharge Plan Disposition Patient Disposition: Home Condition: Good Discharge Details Attending Provider: Amanuel Campbell Primary Care Provider: Reyna Kruger Home Meds and New Rx's Prescriptions: No Action polyethylene glycol 3350 17 gram/dose powder 238 g PO ONCE Qty: 238 0RF Rx Instructions: take per colonoscopy instructions bisacodyl [Dulcolax (bisacodyl)] 5 mg tablet,delayed release (DR/EC) 5 mg PO ONCE Qty: 4 0RF Rx Instructions: take per colonoscopy instructions ibuprofen 200 mg tablet 200 mg PO TID PRN clopidogrel 75 mg tablet 75 mg PO DAILY Qty: 90 0RF ascorbic acid (vitamin C) 1,000 mg capsule 1 g PO Q6H docusate sodium 100 mg capsule 100 mg PO DAILY Probiotic (B. coagulans) 10 billion cell capsule,delayed release(DR/EC) 10 cell PO DAILY zinc gluconate 50 mg tablet 50 mg PO DAILY ezetimibe [Zetia] 10 mg tablet 10 mg PO DAILY aspirin 81 mg tablet,delayed release (DR/EC) 81 mg PO DAILY lisinopril 20 mg tablet 20 mg PO DAILY labetalol 100 mg Tablet 100 mg PO DAILY omega-3 fatty acids 1,000 mg Capsule 1,000 mg PO DAILY nitroglycerin [Nitrostat] 0.4 mg Tablet, Sublingual 0.4 mg SUBLINGUAL DIRECTED rosuvastatin [Crestor] 40 mg Tablet 40 mg PO DAILY chlorthalidone 25 mg tablet 25 mg PO BID Discharge Instructions Additional Instructions: FINDINGS: Some polyps were found today and removed. This is why we do the colonoscopy. They are nothing to worry about. Because of this she probably should repeat another colonoscopy in 3 to 5 years. Extensive diverticular disease is present throughout your entire colon. This is a benign condition. It is extremely common. Nothing needs to be done about it as long as you do not have symptoms from it and you have probably had this condition for many decades. Activity:: Activity as Tolerated Diet:: As Tolerated
--- NOTE | 2023-11-14 08:35 | W.ANESPOSTOP ---
Postoperative Evaluation Date, Time and Location Date Performed: 11/14/23 Time Performed: 08:35 Patient Location: Day Surgery Unit Vital Signs Most Recent Imported Vital Signs: Most Recent Vital Signs Temp Pulse Resp BP Pulse Ox 36.3 C L 70 16 122/65 95 11/14/23 08:14 11/14/23 08:14 11/14/23 08:14 11/14/23 08:14 11/14/23 08:14 Pain Score Most Recent Pain Score: Most Recent Pain Score Pain Level 0 11/14/23 08:14 Assessment Mental Status: Awake (Alert & Oriented to Patient Baseline) Airway and Respiratory Function: Patent airway with normal (patient baseline) respiratory exam Cardiovascular Function: Hemodynamically Stable Hydration Status: Adequately Hydrated Nausea & Vomiting: No Nausea or Vomiting Pain: Pt. Denies Any Pain Peripheral Nerve Block: Patient did not receive a nerve block
[2023-11-14 08:38] VITALS: BP 126/80; PULSE 66; RESP 16; TEMP 36.1; O2SAT 97
== END 2023-11-14 09:02 | disposition home or self-care (01) ==
PROVIDERS: PCP Registered Nurse; Visit Provider Student in an Organized Health Care Education/Training Program
PROC: 0DJD8ZZ Inspection of Lower Intestinal Tract, Via Natural or Artificial Opening Endoscopic (ICD-10-PCS; CPT 45378; principal; 2023-11-14 07:30)
DX: Z12.11 Encounter for screening for malignant neoplasm of colon (principal); D12.0 Benign neoplasm of cecum; K57.30 Diverticulosis of large intestine without perforation or abscess without bleeding; Z86.010 Personal history of colon polyps
CPT/HCPCS: 45388; 45385; 45380; 00123; 88305; J2001; J2704

== ENCOUNTER 2023-11-28 13:00 | Outpatient (REF) | payer MEDICARE, SELFPAY ==
[2023-11-28 21:37] LABS: HCT 40.9 % (40.0-50.0); HGB 13.7 g/dL (13.5-17.5); MCH 32.5 pg (27.0-33.0); MCHC 33.5 % (32.0-36.0); MCV 97 fL (80-95); MPV 9.5 fL (8.0-11.0); Platelet Count 297 10^3/uL (130-400); RBC 4.22 10^6/uL (4.36-5.78); RDW 13.6 % (11.8-14.1); RDW-SD 48.2 fL
[2023-11-28 21:52] LABS: Anion Gap 10.4 mmol/L (3-11); BUN 30 mg/dL (7-18); CO2 26.6 mmol/L (21.0-32.0); CREATININE 1.1 mg/dL (0.70-1.30); Calcium 9.7 mg/dL (8.5-10.1); Chloride 107 mmol/L (98-107); Estimated GFR 68.71 (mL/min/1.73m2); Glucose 80 mg/dL (74-106); Potassium 3.9 mmol/L (3.5-5.1); Sodium 144 mmol/L (136-145)
[2023-11-28 21:55] LABS: COMMENT (LAB VIEW ONLY) 165.45 mg/dL; Microalb ug/mg Crea 41.8 ug/mg Cr
[2023-11-29 18:15] LABS: PSA, Screening 3.2 ng/mL (<=6.5)
== END 2023-11-28 13:01 | disposition home or self-care (01) ==
LOC: NCHCN 13:00
PROVIDERS: PCP Registered Nurse; Visit Provider Family Medicine
DX: E11.319 Type 2 diabetes mellitus with unspecified diabetic retinopathy without macular edema (principal)
CPT/HCPCS: 80048; 84153; 85027; 82043; 82570; 83036

== ENCOUNTER 2025-05-01 18:14 | Outpatient (REF) | payer MEDICARE, SELFPAY ==
[2025-05-01 21:33] LABS: ALT 29 U/L (16-63); AST 28 U/L (15-37); Albumin 3.8 g/dL (3.4-5.0); Alkaline Phosphatase 59 U/L (46-116); Anion Gap 10.3 mmol/L (3-11); BUN 29 mg/dL (7-18); Bilirubin, Total 0.7 mg/dL (0.2-1.0); CO2 26.7 mmol/L (21.0-32.0); Calcium 10.1 mg/dL (8.5-10.1); Chloride 104 mmol/L (98-107); Estimated GFR 86.88 (mL/min/1.73m2); Glucose 93 mg/dL (74-106); Potassium 4.0 mmol/L (3.5-5.1); Sodium 141 mmol/L (136-145); Total Protein 7.7 g/dL (6.4-8.2)
[2025-05-01 21:47] LABS: COMMENT (LAB VIEW ONLY) 188.00 mg/dL; Microalb ug/mg Crea 48.5 ug/mg Cr
[2025-05-02 18:47] LABS: PSA, Diagnostic 4.3 ng/mL (<=6.5)
== END 2025-05-01 18:15 | disposition home or self-care (01) ==
LOC: NCHCN 18:14
PROVIDERS: PCP Registered Nurse; Visit Provider Family Medicine
DX: R35.0 Frequency of micturition (principal); I10 Essential (primary) hypertension
CPT/HCPCS: 80053; 82043; 82570; 84153